=== PATIENT | male | born 1965 | race Hispanic/Latino ===

== ENCOUNTER 2019-11-04 | Emergency (ER) | payer OTHER ==
[2019-11-05] MEDS ORDERED: FLEXERIL PO (01:14)
[2019-11-05] MEDS ORDERED: NAPROXEN500 MG PO (01:14)
== END 2019-11-05 01:33 | disposition home or self-care (01) | DRG 552 ==
DX: M54.5 Low back pain (principal); M47.816 Spondylosis without myelopathy or radiculopathy, lumbar region; I10 Essential (primary) hypertension; V89.2XXA Person injured in unspecified motor-vehicle accident, traffic, initial encounter